=== PATIENT | male | born 1980 | race American Indian/Alaskan Native ===

== ENCOUNTER 2020-12-18 02:07 | Emergency (ER) | payer SELFPAY ==
[2020-12-18 02:29] VITALS: BP 153/93
[2020-12-18] MEDS ORDERED: IBUPROFEN 800 MG TAB PO ONE (02:54)
--- NOTE | 2020-12-18 03:02 | Emergency Department Report ---
<TANNER DIXONREYNA Garcia - Last Filed: 12/18/20 04:09> ED Male HPI - General Chief complaint: Urogenital-Male Stated complaint: TESTICULAR PAIN Time Seen by Provider: 12/18/20 02:53 - Related Data Previous Rx's Medication Instructions Recorded Last Taken Type Doxycycline Hyclate [Doxycycline 100 mg PO Q12HR 10 Days #20 tab 12/18/20 Unknown Rx Hyclate TAB] Allergies Allergy/AdvReac Type Severity Reaction Status Date / Time No Known Allergies Allergy Unverified 12/18/20 02:20 ED Past Medical Hx - Medications Home Medications: Home Medications Medication Instructions Recorded Confirmed Last Taken Type Doxycycline Hyclate [Doxycycline 100 mg PO Q12HR 10 Days #20 tab 12/18/20 Unknown Rx Hyclate TAB] ED Course - Reevaluation(s) Reevaluation #1: I reviewed the findings and management of this patient in real-time and I have personally seen and examined this patient and participated in the decision making for this patient with the midlevel. Patient is a 40-year-old male who presents emergency room with complaints of right testicular pain. Patient states the pain is a 10 out of 10. Patient dates the pain is better with rest and worse with movement and palpation. Patient complains of warmth to the right scrotal region. Patient states he is sexually active and does not use a condom. Patient denies dysuria. Patient denies penile discharge. Patient denies recent travel. Patient denies recent international travel. Patient denies exposure to the novel coronavirus. Patient denies sick contacts. Patient denies fever and chills. Patient denies cough. Patient denies diarrh ea. Patient denies coming in contact with anybody with symptoms of the novel coronavirus. I examined the patient. CV exam is normal and patient has a normal S1-S2, no murmurs noted.. Patient patient's lung sounds are clear to auscultation. Patient's right testicle shows a normal lie and right testicle tenderness to palpation. Patient will have an ultrasound done of his testicles. 12/18/20 03:08 ED Disposition Clinical Impression: Testicular pain, right, Concern about STD in male without diagnosis, Hydrocele in adult Disposition: DC-01 TO HOME OR SELFCARE Condition: Stable Additional Instructions: Your urine shows that you have a lot of white cells which is indicative of infection. You are being treated for STD. I recommended she [facility] at the [facility] for a full STD panel which includes gonorrhea chlamydia HIV syphilis herpes hepatitis. Prescriptions: Doxycycline Hyclate [Doxycycline Hyclate TAB] 100 mg PO Q12HR 10 Days #20 tab Referrals: [facility] Dep[facility] [Outside] - 3-5 Days JOSS BRENNER MD [Staff Physician] - 3-5 Days Forms: Work/School Release Form(ED) <LOAN EVANS - Last Filed: 12/18/20 05:16> ED Male HPI - General Source: patient Mode of arrival: Ambulatory Limitations: No Limitations - History of Present Illness Initial comments: 40-year-old -[place] male presents to the emergency room complaining of right testicular pain and swelling for 2 days. Patient states that pain is starting to become annoying as when he walks he has more pain. He denies any penile discharge reports no unprotected vaginal intercourse but does report unprotected oral and intercourse. He denies any injury. Denies any fever chills no nausea no vomiting. Denies any dysuria no hematuria. Denies any past medical history takes no medications on a daily basis has no known drug allergies. Has no primary care provider. MD Complaint: testicle pain, testicle swelling Onset/Timin -: days(s) Location: right testicle Radiation: none Severity: moderate Severity scale (0 -10): 7 Improves with: none Worsens with: movement denies: discharge, mass, urinary retention, blood in urine, dysuria, fever, nausea/vomiting, incontinence - Related Data Sexually active: Yes ED Review of Systems ROS: Stated complaint: TESTICULAR PAIN Other details as noted in HPI Comment: All other systems reviewed and negative ED Past Medical Hx - Past Medical History Previous Medical History?: Yes Hx Hypertension: Yes - Surgical History Past Surgical History?: No - Social History Smoking Status: Unknown if ever smoked Substance Use Type: Marijuana ED Physical Exam - General Limitations: No Limitations General appearance: alert, in no apparent distress - Head Head exam: Present: atraumatic, normocephalic - Eye Eye exam: Present: normal appearance, EOMI - ENT ENT exam: Present: normal external ear exam - Respiratory Respiratory exam: Absent: accessory muscle use - Cardiovascular Cardiovascular Exam: Present: regular rate - GI/Abdominal GI/Abdominal exam: Present: soft. Absent: distended, tenderness, guarding - exam: Present: testicular tenderness (Right), scrotal swelling, circumcision (Right). Absent: urethral discharge - Extremities Exam Extremities exam: Present: normal inspection - Back Exam Back exam: Present: normal inspection - Neurological Exam Neurological exam: Present: alert, oriented X3, normal gait - Psychiatric Psychiatric exam: Present: normal affect, normal mood - Skin Skin exam: Present: warm, dry, intact, normal color. Absent: rash ED Course Vital Signs 12/18/20 02:20 Temperature 99.3 F Pulse Rate 70 Respiratory 16 Rate Blood Pressure 153/93 O2 Sat by Pulse 100 Oximetry ED Medical Decision Making - Medical Decision Making 40-year-old -[place] male presents to the emergency room complaining of right testicular pain and swelling for 2 days. Patient states that pain is starting to become annoying as when he walks he has more pain. He denies any penile discharge reports no unprotected vaginal intercourse but does report unprotected oral and intercourse. He denies any injury. Denies any fever chills no nausea no vomiting. Denies any dysuria no hematuria. Denies any past medical history takes no medications on a daily basis has no known drug allergies. Has no primary care provider. Chaperoned by Dr. Lisha WASHINGTON attending. Thoughts that this is most likely epididymitis. Ultrasound of testicles has been ordered urinalysis has been sent. Pain medication has been ordered. Ultrasound shows a calcification in the right testicle normal swelling or abnormality. Urinalysis shows greater than 182 WBCs with moderate amount of blood. We will treat patient with Rocephin injection and doxycycline 100 mg p.o. twice daily for 10 days. Critical care attestation.: If time is entered above; I have spent that time in minutes in the direct care of this critically ill patient, excluding procedure time. ED Disposition Is pt being admited?: No Does the pt Need Aspirin: No
[2020-12-18 03:20] LABS: Bilirubin,Urine NEG (Negative); Blood,Urine MOD (Negative); Color,Urine Yellow (Yellow); Mucus,Urine 3+ /HPF
[2020-12-18 03:22] LABS: WBC,Urine > 182.0 /HPF (0.0-6.0)
[2020-12-18] MEDS ORDERED: LIDOCAINE-MPF (1%) 10 MG/1 ML VIAL 5 ML INFILTRATI ONE (04:30)
--- NOTE | 2020-12-18 04:49 | Ultrasound Report ---
ULTRASOUND SCROTUM INDICATION / CLINICAL INFORMATION: Right testicular pain and swelling. COMPARISON: None available. FINDINGS -- RIGHT TESTIS: Size = 3.8 cm. - Appearance: No significant abnormality. - Cyst or Mass: No significant cyst or mass. 3 mm dystrophic calcification in the testicle. - Color Doppler Flow: No significant abnormality. EPIDIDYMIS: No significant abnormality. HYDROCELE: Mild right hydrocele VARICOCELE: None demonstrated. FINDINGS -- LEFT TESTIS: Size = 3.7 cm. - Appearance: No significant abnormality. - Cyst or Mass: None. - Color Doppler Flow: No significant abnormality. EPIDIDYMIS: No significant abnormality. HYDROCELE: None. VARICOCELE: None demonstrated. ADDITIONAL FINDINGS: None. IMPRESSION: Nonspecific mild right hydrocele. Otherwise, no significant abnormality. No evidence of torsion. Signer Name: Mika Jung MD Signed: 12/18/2020 4:45 AM Workstation Name: [id number]
== END 2020-12-18 05:20 | disposition home or self-care (01) ==
LOC: ED 02:07
DX: N50.811 Right testicular pain (principal); N43.3 Hydrocele, unspecified; I10 Essential (primary) hypertension; F12.90 Cannabis use, unspecified, uncomplicated; Z71.1 Person with feared health complaint in whom no diagnosis is made; Z79.899 Other long term (current) drug therapy
CPT/HCPCS: 81001; 93975; 96372; 99284; J0696